=== PATIENT | female | born 1960 | race Caucasian/White ===

== ENCOUNTER 2018-03-21 13:21 | Emergency (ER) | payer SELFPAY ==
--- NOTE | 2018-03-21 13:35 | NUR ---
PT LEFT WBS, PT STATES, "I DO NOT WANT TO GO BACK BECAUSE I DON'T KNOW HOW MUCH THEY ARE GOING TO CHARGE MY INSURANCE. I CHANGED MY MIND."
== END 2018-03-21 13:35 | disposition left against medical advice (07) ==
LOC: MED 13:21
DX: Z53.21 Procedure and treatment not carried out due to patient leaving prior to being seen by health care provider (principal)